=== PATIENT | male | born 1960 | race Caucasian/White ===

== ENCOUNTER 2023-01-07 02:47 | Emergency (ER) | payer OTHER ==
[2023-01-07] MEDS ORDERED: Oxymetazoline 0.05% Nasal Spray 30 ML Bottle NAS ONE (03:36)
== END 2023-01-07 03:56 | disposition home or self-care (01) ==
LOC: JP.ED 02:47 → MERGE 02:47 → JP.ED 03:56
DX: J30.2 Other seasonal allergic rhinitis (principal); Z86.16 Personal history of COVID-19
CPT/HCPCS: 99283; A9270